=== PATIENT | female | born 1935 | race Caucasian/White ===

== ENCOUNTER → 2019-05-17 | Outpatient (CLI) | payer MEDICARE ==
[~2019-05-17] MED LIST: ALIS150T; ASP325TEC; ASP81CT PO; AZAT50TA; AZTH50T PO; CENTRUM SILVER; CHOL200018 PO; CIPR100T PO; CLCX200C; CND32T; FISH OIL 1,2001 EAC1; HCT25T; IRB150T PO; LEVO500T69 PO; MESA800T PO; METR500T PO; MSL400TEC; MSL400TEC PO; MTP100TCR PO; MULT-963 PO; NF-ALI300T; NF-BUDE3C; NF-COLE1GM PO; NITR-65 PO; OMEG1CAP58 PO; OMEGA PO; OMG1KC; PHEN200T27 PO; PRD10T PO; PRD20T PO; PRD5T; TEKTURNA PO
--- NOTE | 2019-05-17 12:43 | Diagnostic Imaging Report ---
INDICATION: HTN SARCODOSIS. COMPARISON: 02/13/2016. FINDINGS: Frontal and lateral views of the chest demonstrate normal heart size and pulmonary vascularity. Metallic clips are noted within the lateral margins of the left upper lobe. Otherwise, lungs are clear. There are no signs of infiltrate, pleural effusions or pneumothoraces. The visualized osseous structures show no acute abnormalities. IMPRESSION: 1. No acute process. No signs of infiltrates, effusions or pneumothoraces. Dictated by: Dictated on workstation # [id number]
== END ==
LOC: RAD 10:29
PROVIDERS: ATTEND Family Medicine
DX: I10 Essential (primary) hypertension (principal); D86.9 Sarcoidosis, unspecified
CPT/HCPCS: 71046

== ENCOUNTER 2019-05-27 00:47 | Emergency (ER) | payer MEDICARE ==
[~2019-05-27] VITALS: Ht 152.4 cm; Wt 71.2 kg
--- NOTE | 2019-05-27 01:25 | ED Chest Pain ---
General Stated Complaint: LEFT UPPER SIDE PAIN Source: patient Exam Limitations: no limitations History of Present Illness Date Seen by Provider: May 27, 2019 Time Seen by Provider: 01:03 Initial Comments Here with complaint left side pain that is at the lower rib margin and upper abdomen and radiates down to the lower abdomen all on the flank. Denies nausea, vomiting, diarrhea. She is short of breath but this is chronic and she states unchanged. Pain comes and goes rhythmically. Denies dysuria. Does have history of ulcerative colitis as well as sarcoidosis of the lungs. Also has had increased cough with some sputum. Timing/Duration: 4-6 hours Severity/Quality: moderate, aching Location: abdomen (left upper) Radiation: other (left flank and low chest wall) Activities at Onset: none Prior CP/Workup: echocardiography ASA po OCCUPATIONAL HEALTH SPECIALIST: Yes NTG SL OCCUPATIONAL HEALTH SPECIALIST: No Associated Symptoms: abdominal pain; No back pain, No fever/chills, No nausea/vomiting; shortness of breath; No weakness Allergies and Home Medications Allergies Coded Allergies: Penicillins (Verified Allergy, Unknown, RASH, 05/27/19) codeine (Verified Allergy, Unknown, 05/27/19) guaifenesin (Verified Allergy, Unknown, "TUSSIN", 05/27/19) Home Medications Aspirin 81 Mg Chew, 81 MG PO DAILY, (Reported) Ciprofloxacin 100 Mg Tablet, 400 MG PO BID, (Reported) x 7days Irbesartan 150 Mg Tab, 150 MG PO DAILY, (Reported) hold off on home blood pressure meds times 2 days starting 04/02/12 due to decreased blood pressure. monitor blood pressure at home. restart on 04/04/12 Mesalamine 400 Mg Tab, 800 MG PO QID, (Reported) Metoprolol Succinate 100 Mg Tab, 100 MG PO DAILY, (Reported) hold off on home blood pressure meds times 2 days starting 04/02/12 due to decreased blood pressure. monitor blood pressure at home. restart on 04/04/12 Metronidazole 500 Mg Tab, 500 MG PO BID, (Reported) Prednisone 10 Mg Tab, 10 MG PO BID, (Reported) [Tekturna] , 1 TAB PO DAILY, (Reported) hold off on home blood pressure meds times 2 days starting 04/02/12 due to decreased blood pressure. monitor blood pressure at home. restart on 04/04/12 Patient Home Medication List Home Medication List Reviewed: Yes Review of Systems Review of Systems Constitutional: see HPI; No chills, No fever EENTM: No Symptoms Reported Respiratory: See HPI, Cough, SOA With Exertion (chronic) Cardiovascular: See HPI; Denies Irregular Heart Rate, Denies Lightheadedness Gastrointestinal: Denies Constipated, Denies Diarrhea, Denies Vomiting Genitourinary: No Symptoms Reported Musculoskeletal: No back pain; muscle pain Skin: No change in color, No lesions Psychiatric/Neurological: No Symptoms Reported Endocrine: No Symptoms Reported All Other Systems Reviewed Negative Unless Noted: Yes Past Nywmpdq-Wxmdwz-Hsmqdb Hx Past Med/Social Hx: Reviewed Nursing Past Med/Soc Hx Patient Social History Alcohol Use: Denies Use Recreational Drug Use: No Smoking Status: Never a Smoker Recent Foreign Travel: No Contact w/Someone Who Travel: No Immunizations Up To Date Date of Pneumonia Vaccine: Feb 13, 2011 Date of Influenza Vaccine: Apr 02, 2012 Past Medical History Surgeries: Yes (lung biopsy, breast biopsy) Eye Surgery, Tonsillectomy, Vascular Surgery Respiratory: Yes (sarcoidosis) Heart Murmur Reproductive Disorders: No Colitis (ulcerative) Endocrine: No Psychosocial: No Family Medical History Reviewed Nursing Family Hx Physical Exam Vital Signs Vital Signs - First Documented 05/27/19 00:56 Temp 36.8 Pulse 96 Resp 18 B/P (MAP) 152/96 (114) Pulse Ox 92 O2 Delivery Room Air Capillary Refill : Height, Weight, BMI Height: '" Weight: lbs. oz. kg; BMI Method:Stated General Appearance: No Apparent Distress, WD/WN HEENT: PERRL/EOMI, TMs Normal, Pharynx Normal Neck: Non Tender, Supple Respiratory: No Accessory Muscle Use, No Respiratory Distress, Other (coarse breath sounds) Cardiovascular: Regular Rate, Rhythm, Systolic Murmur Gastrointestinal: Soft, Tenderness (left flank) Extremity: Normal Range of Motion, Non Tender Neurologic/Psychiatric: Alert, Oriented x3 Skin: Normal Color, Warm/Dry Progress/Results/Core Measures Results/Orders Lab Results Laboratory Tests Test 05/27/19 01:08 05/27/19 02:10 Range/Units White Blood Count 13.6 H 4.3-11.0 10^3/uL Red Blood Count 4.70 4.35-5.85 10^6/uL Hemoglobin 14.4 11.5-16.0 G/DL Hematocrit 45 35-52 % Mean Corpuscular Volume 95 80-99 FL Mean Corpuscular Hemoglobin 31 25-34 PG Mean Corpuscular Hemoglobin Concent 32 32-36 G/DL Red Cell Distribution Width 13.8 10.0-14.5 % Platelet Count 295 130-400 10^3/uL Mean Platelet Volume 10.8 H 7.4-10.4 FL Neutrophils (%) (Auto) 65 42-75 % Lymphocytes (%) (Auto) 25 12-44 % Monocytes (%) (Auto) 7 0-12 % Eosinophils (%) (Auto) 3 0-10 % Basophils (%) (Auto) 0 0-10 % Neutrophils # (Auto) 8.8 H 1.8-7.8 X 10^3 Lymphocytes # (Auto) 3.3 1.0-4.0 X 10^3 Monocytes # (Auto) 1.0 0.0-1.0 X 10^3 Eosinophils # (Auto) 0.4 H 0.0-0.3 10^3/uL Basophils # (Auto) 0.1 0.0-0.1 10^3/uL Prothrombin Time 12.8 12.2-14.7 SEC INR Comment 0.9 0.8-1.4 Activated Partial Thromboplast Time 33 24-35 SEC Sodium Level 138 135-145 MMOL/L Potassium Level 3.6 3.6-5.0 MMOL/L Chloride Level 99 98-107 MMOL/L Carbon Dioxide Level 26 21-32 MMOL/L Anion Gap 13 5-14 MMOL/L Blood Urea Nitrogen 33 H 7-18 MG/DL Creatinine 0.96 0.60-1.30 MG/DL Estimat Glomerular Filtration Rate 55 BUN/Creatinine Ratio 34 Glucose Level 108 H 70-105 MG/DL Calcium Level 10.1 8.5-10.1 MG/DL Corrected Calcium 9.7 8.5-10.1 MG/DL Magnesium Level 2.0 1.6-2.4 MG/DL Total Bilirubin 0.4 0.1-1.0 MG/DL Aspartate Amino Transf (AST/SGOT) 23 5-34 U/L Alanine Aminotransferase (ALT/SGPT) 14 0-55 U/L Alkaline Phosphatase 90 40-136 U/L Myoglobin 36.3 10.0-92.0 NG/ML Troponin I < 0.028 <0.028 NG/ML C-Reactive Protein High Sensitivity 6.12 H 0.00-0.50 MG/DL Total Protein 8.7 H 6.4-8.2 GM/DL Albumin 4.5 3.2-4.5 GM/DL Urine Color YELLOW Urine Clarity CLEAR Urine pH 6.0 5-9 Urine Specific [place] 1.010 L 1.016-1.022 Urine Protein NEGATIVE NEGATIVE Urine Glucose (UA) NEGATIVE NEGATIVE Urine Ketones NEGATIVE NEGATIVE Urine Nitrite NEGATIVE NEGATIVE Urine Bilirubin NEGATIVE NEGATIVE Urine Urobilinogen 0.2 < = 1.0 MG/DL Urine Leukocyte Esterase 1+ H NEGATIVE Urine RBC (Auto) TRACE-I NEGATIVE Urine RBC 0-2 /HPF Urine WBC 2-5 /HPF Urine Squamous Epithelial Cells 0-2 /HPF Urine Crystals NONE /LPF Urine Bacteria TRACE /HPF Urine Casts NONE /LPF Urine Mucus NEGATIVE /LPF Urine Culture Indicated NO Micro Results Microbiology 05/27/19 Influenza Types A,B Antigen (SONYA) - Final, Complete My Orders Orders - FLOR FELDER MD Cbc With Automated Diff (05/27/19 01:07) Magnesium (05/27/19 01:07) Chest 1 View, Ap/Pa Only (05/27/19 01:07) Ekg Tracing (05/27/19 01:07) Comprehensive Metabolic Panel (05/27/19 01:07) Myoglobin Serum (05/27/19 01:07) Protime With Inr (05/27/19 01:07) Partial Thromboplastin Time (05/27/19 01:07) O2 (05/27/19 01:07) Monitor-Rhythm Ecg Trace Only (05/27/19 01:07) Lipid Panel (05/28/19 06:00) Ed Iv/Invasive Line Start (05/27/19 01:07) Troponin I (05/27/19 01:07) Hs C Reactive Protein (05/27/19 01:07) Ua Culture If Indicated (05/27/19 01:07) Influenza A And B Antigens (05/27/19 01:07) Ct Abdomen/Pelvis W (05/27/19 02:07) Lactated Ringers (Lr 1000 Ml Iv Solution (05/27/19 02:08) Iohexol Injection (Omnipaque 350 Mg/Ml 1 (05/27/19 03:15) Received Contrast (Hold Metformin- Contr (05/27/19 03:15) Prednisone Tablet (Deltasone Tablet) (05/27/19 05:00) Vibramycin 100mg Po (05/27/19 04:49) Medications Given in ED Current Medications Medications Dose Ordered Sig/Anneliese Route Start Time Stop Time Status Last Admin Dose Admin Iohexol 100 ml ONCE ONCE IV 05/27/19 03:15 05/27/19 03:16 UNV 05/27/19 04:22 90 ML Lactated Ringer's 1,000 ml @ 0 mls/hr Q0M ONCE IV 05/27/19 02:08 05/27/19 02:09 DC 05/27/19 02:16 100 MLS/HR Vital Signs/I&O 05/27/19 00:56 Temp 36.8 Pulse 96 Resp 18 B/P (MAP) 152/96 (114) Pulse Ox 92 O2 Delivery Room Air Progress Progress Note : Progress Note Seen and evaluated. IV, labs, EKG and chest x-ray ordered. No aspirin as she is taken 2 baby aspirin today. We will check a UA given flank findings. Monitor patient. CT abdomen pelvis ordered due to pain and slight elevation of white count and history of ulcerative colitis. LR 1 L bolus. Monitor patient. 0450: Prednisone 40 mg by mouth and doxycycline 100 mg by mouth ordered. CT is negative. She has had increasing cough with history of COPD and she does get short of breath when walking. We will initiate prednisone and doxycycline for COPD and possible atypical pneumonia. Otherwise safe for discharge home. Instructed her to follow-up with Dr. Puente I will send a copy of the chart to her. Discharged home with return precautions. Patient and family verbalize understanding instructions and agreement with plan. Initial ECG Impression Date: May 27, 2019 Initial ECG Impression Time: 01:13 Initial ECG Rate: 86 Initial ECG Rhythm: Normal Sinus Comment Sinus rhythm with normal axis. No evidence of ST elevation HI. LVH noted. Similar to previous of 03/29/12. Interpreted by me. Diagnostic Imaging Diagonstic Imaging: Xray Plain Films/CT/US/NM/MRI: chest Comments Chronic lung disease but no acute findings Reviewed: Reviewed by Me Departure Impression Primary Impression: Intermittent left upper quadrant abdominal pain Additional Impression: COPD (chronic obstructive pulmonary disease) Qualified Codes: J44.1 - Chronic obstructive pulmonary disease with (acute) exacerbation Disposition: 01 HOME, SELF-CARE Condition: Improved Departure-Patient Inst. Decision time for Depature: 04:54 Referrals: HUSSEIN PUENTE MD (PCP/Family) Primary Care Physician Patient Instructions: Acute Abdomen (Belly Pain), Adult (DC), Exacerbation of COPD Add. Discharge Instructions: Take medications as directed. You will need to do your next dose of antibiotics night. Your next dose of steroid will be tomorrow morning. Follow-up with Dr. Puente or one of her nurse practitioners early next week for recheck and further evaluation regarding your lungs. Return for worse pain, fever, vomiting, weakness, breathing problems or other concerns as needed. Drink plenty of flui ds. Scripts Prednisone (Prednisone) 20 Mg Tab 40 MG PO DAILY, #8 TAB 0 Refills Prov: FLOR FELDER MD 05/27/19 Doxycycline Hyclate (Doxycycline Hyclate) 100 Mg Tablet 100 MG PO BID, #20 TAB 0 Refills Prov: FLOR FELDER MD 05/27/19 Copy Copies To 1: HUSSEIN PUENTE MD, TIMOTHY D MD May 27, 2019 01:25
[2019-05-27 01:28] LABS: BASOPHILS # (AUTO) 0.1 10^3/uL (0.0-0.1); BASOPHILS % (AUTO) 0 % (0-10); EOSINOPHILS # (AUTO) 0.4 10^3/uL (0.0-0.3); EOSINOPHILS % (AUTO) 3 % (0-10); HEMATOCRIT 45 % (35-52); HEMOGLOBIN 14.4 G/DL (11.5-16.0); LYMPHOCYTES # (AUTO) 3.3 X 10^3 (1.0-4.0); LYMPHOCYTES % (AUTO) 25 % (12-44); MEAN CORPUSCULAR HEMOGLOBIN 31 PG (25-34); MEAN CORPUSCULAR HGB CONC 32 G/DL (32-36); MEAN CORPUSCULAR VOLUME 95 FL (80-99); MEAN PLATELET VOLUME 10.8 FL (7.4-10.4); MONOCYTES % (AUTO) 7 % (0-12); NEUTROPHILS # (AUTO) 8.8 X 10^3 (1.8-7.8); NEUTROPHILS % (AUTO) 65 % (42-75); PLATELET COUNT 295 10^3/uL (130-400); RED CELL DISTRIBUTION WIDTH 13.8 % (10.0-14.5); WHITE BLOOD COUNT 13.6 10^3/uL (4.3-11.0)
[2019-05-27 01:41] LABS: INR 0.9 (0.8-1.4); PROTHROMBIN TIME PATIENT 12.8 SEC (12.2-14.7)
[2019-05-27 01:49] LABS: ALBUMIN 4.5 GM/DL (3.2-4.5); BILIRUBIN,TOTAL 0.4 MG/DL (0.1-1.0); CALCIUM 10.1 MG/DL (8.5-10.1); CREATININE SERUM 0.96 MG/DL (0.60-1.30); POTASSIUM 3.6 MMOL/L (3.6-5.0); TOTAL PROTEIN 8.7 GM/DL (6.4-8.2)
[2019-05-27] MEDS ORDERED: LACTATED RINGERS 1,000 ML IV ONE (02:08)
[2019-05-27 02:27] LABS: BILIRUBIN,URINE NEGATIVE (NEGATIVE); CLARITY,URINE CLEAR; COLOR,URINE YELLOW; GLUCOSE, URINE (UA) NEGATIVE (NEGATIVE); KETONES,URINE NEGATIVE (NEGATIVE); LEUKOCYTE ESTERASE ,URINE 1+ (NEGATIVE); NITRITE,URINE NEGATIVE (NEGATIVE); PROTEIN,URINE NEGATIVE (NEGATIVE)
[2019-05-27 02:42] LABS: BACTERIA,URINE TRACE /HPF; RBC,URINE 0-2 /HPF; SQUAMOUS EPITHELIAL CELL,UR 0-2 /HPF
[2019-05-27] MEDS ORDERED: HOLD METFORMIN - RECEIVED CONTRAST 20 ML VIAL IV SCH (03:15)
[2019-05-27] MEDS ORDERED: IOHEXOL 350 MG/ML 100 ML (OMNIPAQUE 350) VIAL IV ONE (03:15)
[2019-05-27] MEDS ORDERED: DOXYCYCLINE 100 MG (VIBRAMYCIN) TABLET PO STA (04:49)
[2019-05-27] MEDS ORDERED: DOXY100T2 PO (04:56)
[2019-05-27] MEDS ORDERED: PRD20T PO (04:56)
[2019-05-27] MEDS ORDERED: predniSONE 20 MG TAB PO ONE (05:00)
[2019-05-27 05:05] VITALS: BP 124/81
--- NOTE | 2019-05-27 06:51 | Diagnostic Imaging Report ---
PROCEDURE: CT abdomen and pelvis with contrast. TECHNIQUE: Multiple contiguous axial images were obtained through the abdomen and pelvis after administration of intravenous contrast. Auto Exposure Controls were utilized during the CT exam to meet ALARA standards for radiation dose reduction. INDICATION: Left upper abdominal pain, history of sarcoidosis from 10 years ago. Previous surgery in the left lung. COMPARISON STUDY: CTA chest, abdomen, and pelvis from 2015. FINDINGS: Some fibrotic changes present in the lung bases. Coronary artery and aortic valvular calcifications are present. The heart size is normal. The liver, gallbladder, spleen, pancreas, adrenal glands and kidneys appear normal. No calculi or hydronephrosis present. Calcifications are present in the aorta. There is no ascites, free air or abnormal adenopathy. The uterus is atrophied. Urinary bladder normal. No hernias are seen. Some colonic diverticula are present without inflammation. Degenerative changes are present in the spine with mild scoliosis. IMPRESSION: 1. No acute findings are present. 2. Diverticulosis. 3. Arteriosclerosis present with calcification of the coronary arteries and aortic valve leaflets. Dictated by: Dictated on workstation # [id number]
--- NOTE | 2019-05-27 07:00 | Diagnostic Imaging Report ---
INDICATION: Left upper side pain, sarcoidosis 10 years ago. COMPARISON STUDY: Chest from May 17. FINDINGS: Frontal view of the chest demonstrates mild fibrotic changes to be stable. Heart size and vascularity are normal. There are no pleural effusions. IMPRESSION: There are stable mild fibrotic changes. Dictated by: Dictated on workstation # [id number]
== END 2019-05-27 05:07 | disposition home or self-care (01) ==
LOC: EDUNIT# 00:47 → ER 00:49
DX: R10.12 Left upper quadrant pain (principal); J44.9 Chronic obstructive pulmonary disease, unspecified; Z88.0 Allergy status to penicillin; Z88.5 Allergy status to narcotic agent; Z88.8 Allergy status to other drugs, medicaments and biological substances; Z79.82 Long term (current) use of aspirin; Z87.19 Personal history of other diseases of the digestive system
CPT/HCPCS: 36415; 71045; 74177; 80053; 81000; 83735; 83874; 84484; 85025; 85610; 85730; 86141; 87804; 93005; 93041

== ENCOUNTER 2022-05-10 18:31 | Emergency (ER) | payer MEDICARE ==
[~2022-05-10] VITALS: Ht 157 cm; Wt 71.2 kg
[~2022-05-10 18:31] MED LIST changes: +DOXY100T2 PO
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
[2022-05-10 19:48] VITALS: BP 101/76
== END 2022-05-10 19:52 | disposition home or self-care (01) ==
LOC: EDUNIT# 18:31 → ER 18:32
DX: S09.90XA Unspecified injury of head, initial encounter (principal); S00.03XA Contusion of scalp, initial encounter; R40.2362 Coma scale, best motor response, obeys commands, at arrival to emergency department; R40.2142 Coma scale, eyes open, spontaneous, at arrival to emergency department; R40.2252 Coma scale, best verbal response, oriented, at arrival to emergency department; V89.2XXA Person injured in unspecified motor-vehicle accident, traffic, initial encounter; W22.8XXA Striking against or struck by other objects, initial encounter; Y92.410 Unspecified street and highway as the place of occurrence of the external cause
CPT/HCPCS: 70450